=== PATIENT | female | born 1940 | race Caucasian/White ===

== ENCOUNTER 2020-04-18 01:27 | Inpatient (IN) ==
[2020-04-18] MEDS ORDERED: Naloxone 0.4 MG/ML INJ IVP PRN ×2 (03:43→18:41)
[2020-04-18] MEDS ORDERED: Ondansetron 4 MG/2 ML VIAL IVP PRN ×3 (03:43→18:41)
[2020-04-18] MEDS ORDERED: *HR* Metoprolol 5 MG/5 ML VIAL IVP ONE (04:00)
[2020-04-18 05:05] LABS: Basophils % 0.2 %; Eosinophils % 0.2 %; Hematocrit 34.2 % (35.3-44.9); Hemoglobin 10.7 g/dL (11.5-15.4); Immature Granulocytes % 0.7 % (0-4); Lymphocytes # 0.6 K/mcL (0.6-4.6); Lymphocytes % 4.6 %; Mean Corpuscular HGB Conc 31.3 g/dL (31.6-35.5); Mean Corpuscular Hemoglobin 29.6 pg (28.0-33.3); Mean Corpuscular Volume 94.5 fL (83.0-100.0); Mean Platelet Volume 11.6 fL (9.4-12.4); Monocytes # 0.8 K/mcL (0.0-1.3); Monocytes % 5.4 %; Neutrophils # 12.3 K/mcL (1.6-8.9); Platelet Count 194 K/mcL (140-400); Red Blood Count 3.62 M/mcL (3.82-4.97); Segmented Neutrophils % 88.9 %; White Blood Count 13.8 K/mcL (4.3-11.1)
[2020-04-18 05:11] LABS: INR 1.9; Prothrombin Time 21.3 Seconds (9.4-12.1)
[2020-04-18 05:18] LABS: BUN/Creatinine Ratio 29 (6-26); Blood Urea Nitrogen 28 mg/dL (8-23); Calcium 9.5 mg/dL (8.6-10.3); Carbon Dioxide 26 mEq/L (23-29); Chloride 108 mEq/L (98-107); Glucose 203 mg/dL (70-105); Osmolality,Calculated 301 (280-300); Potassium 4.7 mEq/L (3.5-5.1); Sodium 140 mEq/L (136-145); eGFR For African Americans > 60 (> 60); eGFR For Non-African Americans 55 (> 60)
[2020-04-18] MEDS ORDERED: Aspirin 81 MG TAB.CHEW PO SCH (09:00)
[2020-04-18] MEDS ORDERED: Metoprolol 100 MG TABLET PO SCH (09:00)
[2020-04-18] MEDS ORDERED: Morphine Sulfate 2 MG/ML SYRINGE IVP PRN (14:50)
[2020-04-18] MEDS ORDERED: *HR* Labetalol 20 MG/4 ML SYRINGE IVP PRN (14:51)
[2020-04-18] MEDS ORDERED: Ondansetron 4 MG/2 ML VIAL ONE ×2 (15:13→16:35)
[2020-04-18] MEDS ORDERED: Dexamethasone 4 MG/ML VIAL ONE ×2 (15:13→16:35)
[2020-04-18] MEDS ORDERED: Lidocaine -MPF 2% 2 ML VIAL ONE ×2 (15:13→15:54)
[2020-04-18] MEDS ORDERED: *HR* FentaNYL (PF) 100 MCG/2 ML VIAL ONE ×2 (15:14→15:52)
[2020-04-18] MEDS ORDERED: *HR* Propofol 200 MG/20 ML VIAL IVP ONE ×2 (15:14→15:52)
[2020-04-18] MEDS ORDERED: Acetaminophen IV 1,000 MG/100 ML BAG ONE (16:06)
[2020-04-18] MEDS ORDERED: ceFAZolin 2,000 MG in 0.9 % Sodium Chloride 100 ML IVPB ONE (16:19)
[2020-04-18] MEDS ORDERED: CeFAZolin Syr 2,000MG/20 ML 2,000 MG/20 ML SYRINGE IVPB ONE ×2 (16:45→18:41)
[2020-04-18] MEDS: Metoprolol 100 MG TABLET PO SCH (20:42)
[2020-04-18] MEDS: clonazePAM 1 MG TABLET PO SCH (20:42)
[2020-04-18] MEDS: Magnesium Oxide 400 MG TABLET PO SCH (20:42)
[2020-04-18] MEDS: Apixaban 5 MG TABLET PO SCH (20:42)
[2020-04-18] MEDS: CeFAZolin 2 GM/120 ML BAG IVPB SCH (23:45)
[2020-04-19] MEDS ORDERED: METOPROLOL TARTRATE PO SCH (09:00)
[2020-04-19] MEDS ORDERED: lisinopriL 5 MG TABLET PO SCH (09:00)
[2020-04-19 09:11] LABS: Hematocrit 29.8 % (35.3-44.9); Immature Granulocytes % 0.6 % (0-4); Lymphocytes # 0.6 K/mcL (0.6-4.6); Lymphocytes % 4.6 %; Mean Corpuscular HGB Conc 30.5 g/dL (31.6-35.5); Mean Corpuscular Hemoglobin 29.5 pg (28.0-33.3); Mean Corpuscular Volume 96.8 fL (83.0-100.0); Mean Platelet Volume 11.9 fL (9.4-12.4); Monocytes # 0.8 K/mcL (0.0-1.3); Monocytes % 5.8 %; Neutrophils # 12.5 K/mcL (1.6-8.9); Platelet Count 187 K/mcL (140-400); Red Blood Count 3.08 M/mcL (3.82-4.97)
[2020-04-19 09:14] LABS: Hemoglobin 9.1 g/dL (11.5-15.4)
[2020-04-19 09:23] LABS: BUN/Creatinine Ratio 27 (6-26); Blood Urea Nitrogen 26 mg/dL (8-23); Calcium 9.4 mg/dL (8.6-10.3); Carbon Dioxide 30 mEq/L (23-29); Chloride 106 mEq/L (98-107); Glucose 155 mg/dL (70-105); Osmolality,Calculated 298 (280-300); Potassium 4.7 mEq/L (3.5-5.1); Sodium 140 mEq/L (136-145); eGFR For African Americans > 60 (> 60); eGFR For Non-African Americans 55 (> 60)
[2020-04-19] MEDS: Multivit/Ca/Min/Fe/FA 1 TAB TABLET PO SCH (09:23)
[2020-04-19] MEDS: Metoprolol 100 MG TABLET PO SCH (09:24)
[2020-04-19] MEDS: Apixaban 5 MG TABLET PO SCH ×2 (09:24→20:37)
[2020-04-19] MEDS: lisinopriL 5 MG TABLET PO SCH (09:24)
[2020-04-19] MEDS: clonazePAM 1 MG TABLET PO SCH ×2 (09:24→20:37)
[2020-04-19] MEDS: Aspirin 81 MG TAB.CHEW PO SCH (09:24)
[2020-04-19] MEDS: Cholecalciferol (D-3) 1,000 UNIT (25MCG) TABLET PO SCH (09:24)
[2020-04-19] MEDS: CeFAZolin 2 GM/120 ML BAG IVPB SCH (09:25)
[2020-04-19] MEDS: Magnesium Oxide 400 MG TABLET PO SCH ×2 (09:25→20:36)
[2020-04-19] MEDS: Furosemide 20 MG TABLET PO SCH (09:25)
[2020-04-19] MEDS ORDERED: Ipratropium/Albuterol Neb 3 ML IH SCH (10:00)
[2020-04-19] MEDS: Ipratropium/Albuterol Neb 3 ML IH SCH ×2 (10:59→21:11)
[2020-04-20 05:27] LABS: Basophils % 0.1 %; Eosinophils % 0.1 %; Hematocrit 26.1 % (35.3-44.9); Immature Granulocytes % 0.6 % (0-4); Lymphocytes % 6.8 %; Mean Corpuscular HGB Conc 30.7 g/dL (31.6-35.5); Mean Corpuscular Hemoglobin 29.5 pg (28.0-33.3); Mean Corpuscular Volume 96.3 fL (83.0-100.0); Monocytes # 1.5 K/mcL (0.0-1.3); Monocytes % 9.9 %; Neutrophils # 12.5 K/mcL (1.6-8.9); Platelet Count 159 K/mcL (140-400); Red Blood Count 2.71 M/mcL (3.82-4.97); Red Cell Distribution Width 13.1 % (11.5-14.5); Segmented Neutrophils % 82.5 %; White Blood Count 15.2 K/mcL (4.3-11.1)
[2020-04-20 05:45] LABS: Calcium 9.3 mg/dL (8.6-10.3); Potassium 4.5 mEq/L (3.5-5.1)
[2020-04-20] MEDS: Cholecalciferol (D-3) 1,000 UNIT (25MCG) TABLET PO SCH (08:01)
[2020-04-20] MEDS: Aspirin 81 MG TAB.CHEW PO SCH (08:01)
[2020-04-20] MEDS: lisinopriL 5 MG TABLET PO SCH (08:02)
[2020-04-20] MEDS: Multivit/Ca/Min/Fe/FA 1 TAB TABLET PO SCH (08:04)
[2020-04-20] MEDS: Magnesium Oxide 400 MG TABLET PO SCH ×2 (08:05→20:23)
[2020-04-20] MEDS: clonazePAM 1 MG TABLET PO SCH ×2 (08:05→20:25)
[2020-04-20] MEDS: Furosemide 20 MG TABLET PO SCH (08:05)
[2020-04-20] MEDS: Apixaban 5 MG TABLET PO SCH ×2 (08:05→20:23)
[2020-04-20] MEDS: Ipratropium/Albuterol Neb 3 ML IH SCH ×2 (08:09→21:16)
[2020-04-20] MEDS ORDERED: 0.9 % Sodium Chloride 1,000 ML IVC SCH (08:15)
[2020-04-20] MEDS ORDERED: *HR* Dextrose 50 % in Water (Vial) 50 ML VIAL IVP PRN (11:25)
[2020-04-20] MEDS ORDERED: Dextrose Gel 15 GM/37.5 ML TUBE PO PRN ×2 (11:25)
[2020-04-20] MEDS ORDERED: D5% in Water 1,000 ML IVC PRN (11:25)
[2020-04-20] MEDS: Insulin LISPRO 300 UNITS/3 ML VIAL SQ SCH ×2 (12:45→17:00)
[2020-04-20 12:51] LABS: Hematocrit 24.8 % (35.3-44.9); Hemoglobin 7.5 g/dL (11.5-15.4)
[2020-04-20] MEDS ORDERED: 0.9 % Sodium Chloride 250 ML ONE (16:22)
[2020-04-21 03:56] LABS: Hematocrit 28.8 % (35.3-44.9); Hemoglobin 8.8 g/dL (11.5-15.4); Mean Corpuscular HGB Conc 30.6 g/dL (31.6-35.5); Mean Corpuscular Hemoglobin 29.4 pg (28.0-33.3); Mean Corpuscular Volume 96.3 fL (83.0-100.0); Platelet Count 162 K/mcL (140-400); Red Blood Count 2.99 M/mcL (3.82-4.97); Red Cell Distribution Width 13.7 % (11.5-14.5); White Blood Count 12.8 K/mcL (4.3-11.1)
[2020-04-21 03:59] LABS: Potassium 4.7 mEq/L (3.5-5.1)
[2020-04-21] MEDS ORDERED: 0.9 % Sodium Chloride 1,000 ML IVC SCH (08:15)
[2020-04-21] MEDS: lisinopriL 5 MG TABLET PO SCH (10:07)
[2020-04-21] MEDS: Apixaban 5 MG TABLET PO SCH ×2 (10:07→21:55)
[2020-04-21] MEDS: Cholecalciferol (D-3) 1,000 UNIT (25MCG) TABLET PO SCH (10:07)
[2020-04-21] MEDS: Aspirin 81 MG TAB.CHEW PO SCH (10:07)
[2020-04-21] MEDS: Insulin LISPRO 300 UNITS/3 ML VIAL SQ SCH ×3 (10:07→17:12)
[2020-04-21] MEDS: Magnesium Oxide 400 MG TABLET PO SCH ×2 (10:08→21:56)
[2020-04-21] MEDS: Multivit/Ca/Min/Fe/FA 1 TAB TABLET PO SCH (10:08)
[2020-04-21] MEDS: clonazePAM 1 MG TABLET PO SCH ×2 (10:08→21:56)
[2020-04-21] MEDS: Ipratropium/Albuterol Neb 3 ML IH SCH ×2 (10:57→22:47)
[2020-04-21 22:36] LABS: Bilirubin,Urine Negative (Negative); Blood,Urine Negative (Negative); Clarity,Urine Clear (Clear); Color,Urine Yellow (Yellow); Glucose,Urine (UA) Normal (Normal); Ketones,Urine Negative (Negative); Leukocyte Esterase,Urine Negative (Negative); Nitrite,Urine Negative (Negative); PH,Urine 5.5 pH Units (5.0-8.0); Protein,Urine Trace mg/dL (Neg-Trace); Specific Gravity,Urine 1.017 (1.010-1.025); Urobilinogen,Urine Normal (Normal)
[2020-04-21 22:51] LABS: Sodium, Urine 29.4 mEq/L
[2020-04-22 02:04] LABS: Hematocrit 25.8 % (35.3-44.9); Mean Corpuscular Hemoglobin 29.3 pg (28.0-33.3); Mean Corpuscular Volume 94.5 fL (83.0-100.0); Mean Platelet Volume 11.9 fL (9.4-12.4); Platelet Count 156 K/mcL (140-400); Red Blood Count 2.73 M/mcL (3.82-4.97); Red Cell Distribution Width 13.2 % (11.5-14.5)
[2020-04-22 02:19] LABS: Calcium 8.5 mg/dL (8.6-10.3); Potassium 5.1 mEq/L (3.5-5.1)
[2020-04-22] MEDS: Ipratropium/Albuterol Neb 3 ML IH SCH ×2 (08:08→21:45)
[2020-04-22] MEDS: Insulin LISPRO 300 UNITS/3 ML VIAL SQ SCH ×3 (08:26→17:19)
[2020-04-22] MEDS: Cholecalciferol (D-3) 1,000 UNIT (25MCG) TABLET PO SCH (08:37)
[2020-04-22] MEDS: Multivit/Ca/Min/Fe/FA 1 TAB TABLET PO SCH (08:37)
[2020-04-22] MEDS: Magnesium Oxide 400 MG TABLET PO SCH (08:37)
[2020-04-22] MEDS: Aspirin 81 MG TAB.CHEW PO SCH (08:37)
[2020-04-22] MEDS: clonazePAM 1 MG TABLET PO SCH (08:37)
[2020-04-22] MEDS: Apixaban 5 MG TABLET PO SCH (08:38)
[2020-04-22] MEDS: lisinopriL 5 MG TABLET PO SCH (08:39)
[2020-04-22 17:09] VITALS: BP 114/57
== END 2020-04-22 18:00 | DRG 481 ==
LOC: 3NENU → SUATTDRO 14:22
PROVIDERS: ADMIT Internal Medicine; ATTEND Internal Medicine